=== PATIENT | male | born 1955 | race Caucasian/White ===

== ENCOUNTER 2020-11-02 10:40 | Inpatient (IN) | payer OTHER ==
[2020-11-02 11:38] VITALS: BMI 26.9
[2020-11-02] MEDS ORDERED: MENTHOL/PHENOL 1 EACH UD MM PRN (11:52)
[2020-11-02] MEDS ORDERED: MAG HYDROX/AL HYDROX/SIMETH 30 ML UNIT-DOSE CUP PO PRN (11:52)
[2020-11-02] MEDS ORDERED: NICOTINE POLACRILEX 2 MG GUM BUC PRN (11:52)
[2020-11-02] MEDS ORDERED: BISMUTH SUBSALICYLATE 524 MG/30 ML PO PRN (11:52)
[2020-11-02] MEDS ORDERED: IBUPROFEN 400 MG TABLET (FP) PO PRN (11:52)
[2020-11-02] MEDS ORDERED: MAGNESIUM HYDROX 2400MG/30ML ORAL SUSPENSION 30 ML CUP PO PRN (11:52)
[2020-11-02] MEDS ORDERED: ACETAMINOPHEN 325 MG TABLET (FP) PO PRN ×2 (11:52)
[2020-11-02] MEDS ORDERED: ONDANSETRON *ODT* 4 MG TABLET SL PRN (11:52)
[2020-11-02] MEDS ORDERED: METHOCARBAMOL 500 MG TABLET PO PRN (11:52)
[2020-11-02] MEDS ORDERED: MAGNESIUM CITRATE 300 ML BOTTLE PO PRN (11:52)
[2020-11-02] MEDS: NICOTINE 7 MG/24 HOURS TOPICAL PATCH TD SCH (13:14)
[2020-11-02] MEDS: hydrOXYzine PAMOATE 25 MG CAPSULE (FP) PO SCH ×2 (13:19→18:49)
[2020-11-02] MEDS: PRENATAL VITAMINS W/ FOLIC ACID TABLET (FP) PO SCH (13:19)
[2020-11-02 13:26] LABS: HEMATOCRIT 40.7 % (35.4-49); HEMOGLOBIN 13.8 GM/dL (11.7-16.9); MCH 29.8 pg (25.7-33.7); MCHC 33.9 g/dl (32.0-35.9); MEAN CELL VOLUME 87.9 fl (80-96); MEAN PLT VOLUME 8.6 fl (7.5-11.1); PLATELET COUNT 229 10^3/uL (134-434); RBC 4.63 M/mm3 (4.00-5.60); RDW 13.5 % (11.9-15.9); WHITE BLOOD COUNT 6.9 K/mm3 (4.0-10.0)
[2020-11-02 13:47] LABS: ALBUMIN 3.8 g/dl (3.4-5.0); CALCIUM 8.9 mg/dL (8.5-10.1)
[2020-11-02 13:50] LABS: BILIRUBIN,TOTAL 0.7 mg/dL (0.2-1); TOT PROT 7.3 g/dl (6.4-8.2)
[2020-11-02 13:52] LABS: CREATININE 0.7 mg/dL (0.55-1.3)
[2020-11-02] MEDS ORDERED: METHADONE HCL 10 MG TABLET (FOR DETOX USE ONLY) PO ONE (18:31)
[2020-11-02] MEDS ORDERED: cloNIDine HCL 0.1 MG TABLET PO PRN (18:31)
[2020-11-02] MEDS: THIAMINE HCL 100 MG TABLET (FP) PO SCH (22:30)
[2020-11-02] MEDS: ASPIRIN COATED 81 MG TABLET.EC PO SCH (22:30)
[2020-11-02] MEDS: MELATONIN 5 MG TABLETS PO SCH (22:30)
[2020-11-03] MEDS ORDERED: METHADONE HCL 5 MG TABLET (FOR DETOX USE ONLY) PO ONE (10:00)
[2020-11-03] MEDS: ASPIRIN COATED 81 MG TABLET.EC PO SCH (10:16)
[2020-11-03] MEDS: PRENATAL VITAMINS W/ FOLIC ACID TABLET (FP) PO SCH (10:16)
[2020-11-03] MEDS: NICOTINE 7 MG/24 HOURS TOPICAL PATCH TD SCH (10:18)
[2020-11-03] MEDS ORDERED: LOPERAMIDE HCL 2 MG CAPSULE PO ONE (14:29)
[2020-11-03] MEDS ORDERED: METHOCARBAMOL 750 MG TAB PO ONE (14:30)
[2020-11-03] MEDS: FAMOTIDINE 20 MG TABLET PO SCH ×2 (15:05→22:21)
[2020-11-03] MEDS: MELATONIN 5 MG TABLETS PO SCH (22:19)
[2020-11-03] MEDS: THIAMINE HCL 100 MG TABLET (FP) PO SCH (22:19)
[2020-11-04] MEDS ORDERED: METHADONE HCL 10 MG TABLET (FOR DETOX USE ONLY) PO ONE (10:00)
[2020-11-04] MEDS: FAMOTIDINE 20 MG TABLET PO SCH ×2 (10:10→22:03)
[2020-11-04] MEDS: PRENATAL VITAMINS W/ FOLIC ACID TABLET (FP) PO SCH (10:10)
[2020-11-04] MEDS: ASPIRIN COATED 81 MG TABLET.EC PO SCH (10:10)
[2020-11-04] MEDS: NICOTINE 7 MG/24 HOURS TOPICAL PATCH TD SCH (10:12)
[2020-11-04] MEDS: THIAMINE HCL 100 MG TABLET (FP) PO SCH (22:02)
[2020-11-04] MEDS: MELATONIN 5 MG TABLETS PO SCH (22:02)
[2020-11-05] MEDS ORDERED: METHADONE HCL 5 MG TABLET (FOR DETOX USE ONLY) PO ONE (06:00)
[2020-11-05 06:28] VITALS: BP 140/71; PULSE 69
[2020-11-05 07:36] VITALS: TEMP 98
== END 2020-11-05 07:46 | disposition home or self-care (01) | DRG 897 ==
LOC: YASAS 10:40 → Y6N 12:50
PROVIDERS: ADMIT Allergy & Immunology; ATTEND Allergy & Immunology
PROC: HZ2ZZZZ Detoxification Services for Substance Abuse Treatment (ICD-10-PCS; principal; 2020-11-02)
DX: F11.23 Opioid dependence with withdrawal (principal); F17.210 Nicotine dependence, cigarettes, uncomplicated; I25.2 Old myocardial infarction; R73.09 Other abnormal glucose; H93.19 Tinnitus, unspecified ear; Z59.0 Homelessness
CPT/HCPCS: 36415; 80053; 82962; 85027; 86780; 93005; 93010; C9803; J0735; U0003; U0005

== ENCOUNTER 2023-04-15 19:41 | Emergency (ER) | payer OTHER ==
[2023-04-15 19:46] VITALS: BP 130/61; PULSE 62; RESP 18; TEMP 97.6; BMI 25.0
[2023-04-15] MEDS ORDERED: SODIUM CHLORIDE NASAL SPRAY 44 ML BOTTLE NS ONE (20:56)
[2023-04-15] MEDS ORDERED: SODIUM CHLORIDE 0.9% 500 ML INFUS.BAG IV ONE (21:25)
== END 2023-04-15 21:51 | disposition home or self-care (01) ==
LOC: JER 19:41
DX: F19.920 Other psychoactive substance use, unspecified with intoxication, uncomplicated (principal)
CPT/HCPCS: 99284-25